=== PATIENT | female | born 1975 | race African-American/Black ===

== ENCOUNTER 2022-01-05 04:18 | Day surgery (SDC) | payer OTHER ==
[2021-12-31 18:03] VITALS: BMI 27.9
[2022-01-05] MEDS ORDERED: MIDAZOLAM HCL 2 MG/2 ML SINGLE DOSE VIAL ONE (07:22)
[2022-01-05] MEDS ORDERED: PROPOFOL 20 ML ONE ×3 (07:22)
[2022-01-05] MEDS ORDERED: SUCCINYLCHOLINE CHLORIDE 200 MG/10 ML SYRINGE ONE (07:22)
[2022-01-05] MEDS ORDERED: IBUPROFEN 600 MG TABLET (FP) PO PRN (07:53)
[2022-01-05] MEDS ORDERED: IBUPROFEN 800 MG/8 ML IJ IVPB PRN (07:53)
[2022-01-05] MEDS ORDERED: ONDANSETRON 4 MG/2 ML VIAL IVPUSH PRN (07:53)
[2022-01-05] MEDS ORDERED: oxyCODONE HCL 5 MG TABLET PO PRN (07:53)
[2022-01-05] MEDS ORDERED: ELECTROLYTE-148 SOLN 1,000 ML IV SCH (08:00)
[2022-01-05] MEDS ORDERED: LACTATED RINGERS SOLUTION 1,000 ML IV SCH (09:00)
[2022-01-05 11:03] VITALS: BP 108/56; PULSE 68; TEMP 98
== END 2022-01-05 12:10 | disposition home or self-care (01) ==
LOC: JASU-SURG 04:18
PROVIDERS: ATTEND Obstetrics & Gynecology
PROC: 0UBC8ZZ Excision of Cervix, Via Natural or Artificial Opening Endoscopic (ICD-10-PCS; 2022-01-05)
PROC: 0UB98ZZ Excision of Uterus, Via Natural or Artificial Opening Endoscopic (ICD-10-PCS; 2022-01-05)
PROC: 0UBC8ZX Excision of Cervix, Via Natural or Artificial Opening Endoscopic, Diagnostic (ICD-10-PCS; principal; 2022-01-05 07:30)
PROC: 0UB98ZX Excision of Uterus, Via Natural or Artificial Opening Endoscopic, Diagnostic (ICD-10-PCS; 2022-01-05 07:30)
DX: N84.0 Polyp of corpus uteri (principal); N84.1 Polyp of cervix uteri; D50.9 Iron deficiency anemia, unspecified; N92.0 Excessive and frequent menstruation with regular cycle
CPT/HCPCS: 81025; 88305-TC; 94760